=== PATIENT | male | born 1985 | race Caucasian/White ===

== ENCOUNTER 2016-08-31 07:13 | Day surgery (SDC) | payer BC ==
--- NOTE | ~2016-08-31 | EGD ---
EGD REPORT [facility] [address] [address] NAME: FAVIAN TRISTAN : [birth year] STATUS : REG [facility] – [place] PAT#: [id number] AGE: 31 ADM/REG DATE : 08/31/16 MR#: [id number] REPORT SERV DATE: 08/31/16 DICTATED BY: MISAEL HARRIS DATE: 08/31/16 REPORT STATUS : Draft TRANSCRIBED BY: [facility] DATE: 08/31/16 Endoscopy Center Patient Name: Favian Tristan Date of : 1985 Attending MD: MISAEL HARRIS, Procedure Date No Time: 08/31/2016 Procedure: Colonoscopy Indications: High risk colon cancer surveillance: Personal history of non-advanced adenoma Referring MD: MIRIAN KEITH Medicines: Monitored Anesthesia Care Complications: No immediate complications. Estimated blood loss: None. Procedure: Pre-Anesthesia Assessment: - ASA Grade Assessment: II - A patient with mild systemic disease. After I obtained informed consent, the scope was passed under direct vision. Throughout the procedure, the patient's blood pressure, pulse, and oxygen saturations were monitored continuously. The [facility] [id number] was introduced through the anus and advanced to the cecum, identified by appendiceal orifice and ileocecal valve. The colonoscopy was performed without difficulty. The patient tolerated the procedure well. The quality of the bowel preparation was good. Findings: The perianal and digital rectal examinations were normal. A few small-mouthed diverticula were found in the sigmoid colon and in the descending colon. The exam was otherwise without abnormality on direct and retroflexion views. Impression: - Diverticulosis in the sigmoid colon and in the descending colon. - The examination was otherwise normal on direct and retroflexion views. Recommendation: - Patient has a contact number available for emergencies. The signs and symptoms of potential delayed complications were discussed with the patient. Return to normal activities tomorrow. Written discharge instructions were provided to the patient. - Return to previous diet. - Patient has a contact number available for emergencies. The signs and symptoms of potential delayed EGD REPORT [address] [address] NAME: FAVIAN TRISTAN : [birth year] STATUS : REG [facility]#: [id number] AGE: 31 ADM/REG DATE : 08/31/16 MR#: [id number] REPORT SERV DATE: 08/31/16 DICTATED BY: MISAEL HARRIS DATE: 08/31/16 REPORT STATUS : Draft TRANSCRIBED BY: [employer] DATE: 08/31/16 complications were discussed with the patient. Return to normal activities tomorrow. Written discharge instructions were provided to the patient. - Return to previous diet. - Continue present medications. - Repeat colonoscopy in 3 years for surveillance. Procedure Code(s): --- Professional --- 52770, Colonoscopy, flexible, proximal to splenic flexure; diagnostic, with or without collection of specimen(s) by brushing or washing, with or without colon decompression (separate procedure) Diagnosis Code(s): --- Professional --- K57.30, Diverticulosis of large intestine without perforation or abscess without bleeding Z86.010, Personal history of colonic polyps CPT copyright 2013 [employer]. All rights reserved. The codes documented in this report are preliminary and upon hydraulic lift operator review may be revised to meet current compliance requirements. MISAEL HARRIS, 08/31/2016 8:30 AM Number of Addenda: 0 Note Initiated On: 08/31/2016 8:04 AM Scope Withdrawal Time 0 hours 11 minutes 53 seconds [id number] [id number]
[~2016-08-31 07:13] MED LIST: FLONASE NAS; NASACORTAQ NAS; PRILOSEC40 MG PO
== END 2016-08-31 23:59 | disposition home or self-care (01) ==
LOC: DMU 07:13
PROVIDERS: Internal Medicine Gastroenterology
PROC: 0DJD8ZZ Inspection of Lower Intestinal Tract, Via Natural or Artificial Opening Endoscopic (ICD-10-PCS; principal; 2016-08-31 08:30)
DX: Z12.11 Encounter for screening for malignant neoplasm of colon (principal); K57.30 Diverticulosis of large intestine without perforation or abscess without bleeding; K21.9 Gastro-esophageal reflux disease without esophagitis; Z86.010 Personal history of colon polyps; Z98.890 Other specified postprocedural states